=== PATIENT | female | born 1940 | race Caucasian/White ===

== ENCOUNTER 2018-12-10 07:29 | Outpatient (RCR) | payer OTHER, SELFPAY | END 2018-12-10 23:59 | disposition home or self-care (01) | LOC: INF 07:29 | PROVIDERS: PCP Family Medicine; Visit Provider Internal Medicine Hematology & Oncology | DX: R69 Illness, unspecified (principal) ==

== ENCOUNTER 2018-12-11 10:02 | Outpatient (CLI) | payer OTHER, SELFPAY ==
[2018-12-11 11:13] LABS: Abs Immature Grans 0.02 k/cumm (0.0-0.09); Absolute Basophil Count 0.03 k/cumm (0.0-0.2); Absolute Eosinophil Count 0.29 k/cumm (0.0-0.7); Absolute Lymphocyte Count 0.98 k/cumm (1.2-3.4); Absolute Monocyte Count 0.65 k/cumm (0.11-0.7); Absolute Neutrophil Count 6.07 k/cumm (1.2-6.7); Basophils % 0.4; Eosinophils % 3.6; HCT 29.4 % (36.0-46.0); HGB 9.3 g/dL (12.0-15.5); Immature Grans % 0.2; Lymphocytes % 12.2; Mean Corp. HGB Concentration 31.6 g/dL (32.0-36.0); Mean Corpuscular Hemoglobin 31.1 pg (27.0-33.0); Mean Corpuscular Volume 98.3 fL (80-95); Mean Platelet Volume 10.5 fL (8.0-11.0); Monocytes % 8.1; Neutrophils % 75.5; Platelet Count 350 x1000/uL (130-400); RBC 2.99 m/cumm (4.00-5.20); RBC Distribution Width 15.3 % (11.7-14.6); White Blood Cell Count 8.04 k/cumm (4.4-10.8)
[2018-12-11 11:17] LABS: ALT 17 U/L (14-59); AST 18 U/L (15-37); Albumin 3.5 g/dL (3.4-5.0); Alkaline Phosphatase 120 U/L (46-116); Anion Gap 9.4 mmol/L (3-11); BUN 16 mg/dL (7-18); Bilirubin, Total 0.3 mg/dL (0.2-1.0); CO2 27.6 mmol/L (21.0-32.0); Calcium 8.8 mg/dL (8.5-10.1); Chloride 101 mmol/L (98-107); Estimated GFR 33.76 (mL/min/1.73m2); Glucose 115 mg/dL (70-100); Magnesium 1.9 mg/dL (1.8-2.4); Potassium 3.5 mmol/L (3.5-5.1); Sodium 138 mmol/L (136-145); Total Protein 7.4 g/dL (6.4-8.2)
[2018-12-11 11:31] LABS: Diff Comment RBC Morph Reviewed; RBC Morphology Normal
== END 2018-12-11 10:22 ==
PROVIDERS: PCP Family Medicine; Visit Provider Internal Medicine Hematology & Oncology
DX: C09.9 Malignant neoplasm of tonsil, unspecified (principal)
CPT/HCPCS: 36415; 80053; 83735; 85025

== ENCOUNTER 2018-12-28 10:32 | Outpatient (CLI) | payer OTHER, SELFPAY ==
--- NOTE | 2018-12-28 11:21 | DI.RAD_ITS ---
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 TECHNIQUE: 2D and realtime digital imaging was performed. CONTRAST MATERIAL: Omnipaque 350 COMPARISON: No exams were available for comparison FINDINGS: The patient's port was accessed. There was no resistance during the injection. No contrast is seen leaking around the port or along the course of the tube. Contrast is seen to flow into the right at rium. The tip of the catheter is in the right atrium. Fluoro time: 21 sec IMPRESSION: Patent port. No evidence leak.
[2018-12-28] MEDS: Omnipaque 350 MG/ML 50 ML BTL IJ (11:23)
== END 2018-12-28 10:52 ==
PROVIDERS: PCP Family Medicine
DX: C09.9 Malignant neoplasm of tonsil, unspecified (principal); Z45.2 Encounter for adjustment and management of vascular access device
CPT/HCPCS: 76000; Q9967

== ENCOUNTER 2018-12-30 16:43 | Outpatient (REF) | payer OTHER, SELFPAY ==
[2018-12-30 21:51] LABS: Bilirubin Negative (Negative); Blood Small (Negative); Clarity Cloudy (Clear); Glucose Negative (Negative); Ketones Negative (Negative); Leukocyte Esterase Large (Negative); Nitrite Positive (Negative); Specific Gravity 1.015 (1.005-1.025); Urobilinogen 0.2 EU/dL (Up TO 0.2)
[2018-12-30 22:01] LABS: Bacteria Many HPF (Negative); Crystals Negative HPF (Negative); Epithelial Cells Rare HPF (Negative); Other Cells Negative (Negative); WBC >50 HPF (0-5)
[2018-12-30 22:02] LABS: C & S Indicated? Yes; Casts Negative LPF (Negative); Mucus Negative (Negative)
== END 2018-12-30 17:03 ==
LOC: LBN 16:43
PROVIDERS: PCP Family Medicine; Visit Provider Preventive Medicine Undersea and Hyperbaric Medicine
DX: R30.0 Dysuria (principal)
CPT/HCPCS: 87077; 81003; 81015; 87086; 87186

== ENCOUNTER 2019-01-04 02:51 | Outpatient (RCR) | payer OTHER, SELFPAY ==
[2018-12-18] VITALS (13 sets, daily range): BP systolic 120–146; BP diastolic 53–84; PULSE 52–82; RESP 17–19; TEMP 36.3–37.2; O2SAT 98–100
[2018-12-18] MEDS: Normal Saline Flush 10 ML SYR IVP ×2 (08:26→13:28)
[2018-12-18] MEDS: Heparin 500 UNITS/5 ML SYRINGE IV ×2 (08:26→15:34)
[2018-12-18 08:30] LABS: Abs Immature Grans 0.02 k/cumm (0.0-0.09); Absolute Basophil Count 0.02 k/cumm (0.0-0.2); Absolute Eosinophil Count 0.21 k/cumm (0.0-0.7); Absolute Lymphocyte Count 0.59 k/cumm (1.2-3.4); Absolute Monocyte Count 0.37 k/cumm (0.11-0.7); Absolute Neutrophil Count 5.61 k/cumm (1.2-6.7); Basophils % 0.3; Eosinophils % 3.1; HCT 21.7 % (36.0-46.0); Immature Grans % 0.3; Lymphocytes % 8.7; Mean Corp. HGB Concentration 31.3 g/dL (32.0-36.0); Mean Corpuscular Hemoglobin 31.6 pg (27.0-33.0); Mean Corpuscular Volume 100.9 fL (80-95); Mean Platelet Volume 10.1 fL (8.0-11.0); Monocytes % 5.4; Neutrophils % 82.2; Platelet Count 278 x1000/uL (130-400); RBC 2.15 m/cumm (4.00-5.20); RBC Distribution Width 16.7 % (11.7-14.6); White Blood Cell Count 6.82 k/cumm (4.4-10.8)
[2018-12-18 08:47] LABS: HGB 6.8 g/dL (12.0-15.5)
[2018-12-18 08:48] LABS: Anisocytosis 1+; Basophilic Stippling Present; Diff Comment RBC Morph Reviewed; Macrocytosis 1+; Polychromasia Present
[2018-12-18 08:50] LABS: ALT 17 U/L (14-59); AST 17 U/L (15-37); Albumin 3.2 g/dL (3.4-5.0); Alkaline Phosphatase 94 U/L (46-116); Anion Gap 8.5 mmol/L (3-11); BUN 24 mg/dL (7-18); Bilirubin, Total 0.3 mg/dL (0.2-1.0); CO2 26.5 mmol/L (21.0-32.0); CREATININE 1.28 mg/dL (0.55-1.02); Calcium 8.3 mg/dL (8.5-10.1); Chloride 102 mmol/L (98-107); Estimated GFR 40.54 (mL/min/1.73m2); Glucose 100 mg/dL (70-100); Magnesium 1.9 mg/dL (1.8-2.4); Potassium 3.3 mmol/L (3.5-5.1); Sodium 137 mmol/L (136-145); Total Protein 6.5 g/dL (6.4-8.2)
[2018-12-18] MEDS: Acetaminophen 325 MG TAB 650 MG PO (09:54)
[2018-12-18] MEDS: Furosemide 40 MG/4 ML VIAL 10 MG IVP (13:28)
[2018-12-21 08:25] VITALS: BP 133/63; PULSE 61; RESP 19; TEMP 37.1; O2SAT 100
[2018-12-21 08:31] LABS: Abs Immature Grans 0.06 k/cumm (0.0-0.09); Absolute Basophil Count 0.01 k/cumm (0.0-0.2); Absolute Eosinophil Count 0.03 k/cumm (0.0-0.7); Absolute Lymphocyte Count 0.32 k/cumm (1.2-3.4); Absolute Monocyte Count 0.66 k/cumm (0.11-0.7); Basophils % 0.1; Eosinophils % 0.4; HCT 31.5 % (36.0-46.0); HGB 10.6 g/dL (12.0-15.5); Immature Grans % 0.7; Lymphocytes % 3.9; Mean Corp. HGB Concentration 33.7 g/dL (32.0-36.0); Mean Corpuscular Hemoglobin 31.5 pg (27.0-33.0); Mean Corpuscular Volume 93.8 fL (80-95); Mean Platelet Volume 10.7 fL (8.0-11.0); Neutrophils % 86.9; Platelet Count 290 x1000/uL (130-400); RBC 3.36 m/cumm (4.00-5.20); RBC Distribution Width 15.9 % (11.7-14.6); White Blood Cell Count 8.28 k/cumm (4.4-10.8)
[2018-12-21] MEDS: Normal Saline Flush 10 ML SYR IVP (08:32)
[2018-12-21 08:42] LABS: ALT 12 U/L (14-59); AST 10 U/L (15-37); Albumin 2.9 g/dL (3.4-5.0); Alkaline Phosphatase 94 U/L (46-116); Anion Gap 11.6 mmol/L (3-11); BUN 20 mg/dL (7-18); Bilirubin, Total 1.1 mg/dL (0.2-1.0); CO2 25.4 mmol/L (21.0-32.0); CREATININE 1.68 mg/dL (0.55-1.02); Calcium 8.2 mg/dL (8.5-10.1); Chloride 95 mmol/L (98-107); Estimated GFR 29.62 (mL/min/1.73m2); Glucose 139 mg/dL (70-100); Magnesium 1.7 mg/dL (1.8-2.4); Sodium 132 mmol/L (136-145); Total Protein 6.8 g/dL (6.4-8.2)
[2018-12-21 08:48] LABS: Potassium 2.6 mmol/L (3.5-5.1)
[2018-12-28] MEDS: Normal Saline Flush 10 ML SYR IVP (08:48)
[2018-12-28 08:55] LABS: Abs Immature Grans 0.03 k/cumm (0.0-0.09); Absolute Basophil Count 0.01 k/cumm (0.0-0.2); Absolute Eosinophil Count 0.14 k/cumm (0.0-0.7); Absolute Lymphocyte Count 0.44 k/cumm (1.2-3.4); Absolute Neutrophil Count 3.17 k/cumm (1.2-6.7); Basophils % 0.2; Eosinophils % 3.3; HGB 9.4 g/dL (12.0-15.5); Immature Grans % 0.7; Lymphocytes % 10.3; Mean Corp. HGB Concentration 32.4 g/dL (32.0-36.0); Mean Corpuscular Hemoglobin 31.4 pg (27.0-33.0); Mean Platelet Volume 9.7 fL (8.0-11.0); Monocytes % 11.7; Neutrophils % 73.8; Platelet Count 426 x1000/uL (130-400); RBC 2.99 m/cumm (4.00-5.20); RBC Distribution Width 15.6 % (11.7-14.6); White Blood Cell Count 4.29 k/cumm (4.4-10.8)
[2018-12-28 09:04] LABS: ALT 14 U/L (14-59); AST 10 U/L (15-37); Albumin 2.8 g/dL (3.4-5.0); Alkaline Phosphatase 87 U/L (46-116); BUN 14 mg/dL (7-18); Bilirubin, Total 0.3 mg/dL (0.2-1.0); CREATININE 1.31 mg/dL (0.55-1.02); Calcium 8.4 mg/dL (8.5-10.1); Chloride 100 mmol/L (98-107); Estimated GFR 39.47 (mL/min/1.73m2); Glucose 120 mg/dL (70-100); Potassium 3.3 mmol/L (3.5-5.1); Sodium 135 mmol/L (136-145); Total Protein 6.4 g/dL (6.4-8.2)
[2019-01-01] MEDS: Heparin 500 UNITS/5 ML SYRINGE IV (08:40)
[2019-01-01] MEDS: Normal Saline Flush 10 ML SYR IVP (08:40)
[2019-01-01 09:07] LABS: Abs Immature Grans 0.04 k/cumm (0.0-0.09); Absolute Basophil Count 0.01 k/cumm (0.0-0.2); Absolute Eosinophil Count 0.09 k/cumm (0.0-0.7); Absolute Lymphocyte Count 0.19 k/cumm (1.2-3.4); Absolute Monocyte Count 0.39 k/cumm (0.11-0.7); Absolute Neutrophil Count 2.49 k/cumm (1.2-6.7); Basophils % 0.3; Eosinophils % 2.8; HCT 27.2 % (36.0-46.0); HGB 8.6 g/dL (12.0-15.5); Immature Grans % 1.2; Lymphocytes % 5.9; Mean Corp. HGB Concentration 31.6 g/dL (32.0-36.0); Mean Corpuscular Hemoglobin 30.7 pg (27.0-33.0); Mean Corpuscular Volume 97.1 fL (80-95); Mean Platelet Volume 9.3 fL (8.0-11.0); Monocytes % 12.1; Neutrophils % 77.7; RBC Distribution Width 15.4 % (11.7-14.6); White Blood Cell Count 3.21 k/cumm (4.4-10.8)
[2019-01-01 09:22] LABS: ALT 15 U/L (14-59); AST 11 U/L (15-37); Albumin 2.7 g/dL (3.4-5.0); Alkaline Phosphatase 77 U/L (46-116); Anion Gap 10.3 mmol/L (3-11); BUN 12 mg/dL (7-18); Bilirubin, Total 0.3 mg/dL (0.2-1.0); CO2 23.7 mmol/L (21.0-32.0); CREATININE 1.21 mg/dL (0.55-1.02); Calcium 8.1 mg/dL (8.5-10.1); Chloride 100 mmol/L (98-107); Estimated GFR 43.26 (mL/min/1.73m2); Glucose 131 mg/dL (74-106); Sodium 134 mmol/L (136-145); Total Protein 6.1 g/dL (6.4-8.2)
[2019-01-01 09:36] LABS: Anisocytosis 1+; Diff Comment RBC Morph Reviewed; Hypochromasia 1+; Platelet Count 419 x1000/uL (130-400); Polychromasia Present
[2019-01-04] MEDS: Normal Saline Flush 10 ML SYR IVP (08:55)
[2019-01-04 09:24] LABS: Abs Immature Grans 0.05 k/cumm (0.0-0.09); Absolute Basophil Count 0.03 k/cumm (0.0-0.2); Absolute Eosinophil Count 0.07 k/cumm (0.0-0.7); Absolute Monocyte Count 0.58 k/cumm (0.11-0.7); Absolute Neutrophil Count 6.39 k/cumm (1.2-6.7); Basophils % 0.4; Eosinophils % 0.9; HCT 27.9 % (36.0-46.0); Immature Grans % 0.7; Lymphocytes % 5.3; Mean Corp. HGB Concentration 32.3 g/dL (32.0-36.0); Mean Corpuscular Hemoglobin 31.3 pg (27.0-33.0); Mean Corpuscular Volume 96.9 fL (80-95); Mean Platelet Volume 9.3 fL (8.0-11.0); Monocytes % 7.7; Platelet Count 473 x1000/uL (130-400); RBC 2.88 m/cumm (4.00-5.20); RBC Distribution Width 15.6 % (11.7-14.6); White Blood Cell Count 7.52 k/cumm (4.4-10.8)
[2019-01-04 09:36] VITALS: BP 133/63; PULSE 61; RESP 19; TEMP 37.1; O2SAT 100
[2019-01-04 10:49] LABS: ALT 13 U/L (14-59); AST 14 U/L (15-37); Albumin 2.9 g/dL (3.4-5.0); Alkaline Phosphatase 81 U/L (46-116); Anion Gap 11.3 mmol/L (3-11); BUN 10 mg/dL (7-18); Bilirubin, Total 0.2 mg/dL (0.2-1.0); CO2 23.7 mmol/L (21.0-32.0); CREATININE 1.37 mg/dL (0.55-1.02); Calcium 8.5 mg/dL (8.5-10.1); Chloride 100 mmol/L (98-107); Estimated GFR 37.49 (mL/min/1.73m2); Glucose 130 mg/dL (74-106); Potassium 4.1 mmol/L (3.5-5.1); Sodium 135 mmol/L (136-145); Total Protein 6.3 g/dL (6.4-8.2)
== END 2019-01-09 23:59 | disposition home or self-care (01) ==
LOC: INF 02:51
PROVIDERS: PCP Family Medicine; Visit Provider Internal Medicine Hematology & Oncology
DX: C09.9 Malignant neoplasm of tonsil, unspecified (principal); D64.9 Anemia, unspecified; Z45.2 Encounter for adjustment and management of vascular access device
CPT/HCPCS: 36430; 36591; 80053; 86850; 86900; 86901; 86920; 83735; 85025; J1940; P9016

== ENCOUNTER 2019-01-29 03:49 | Outpatient (RCR) | payer OTHER, SELFPAY ==
[2019-01-11] MEDS: Normal Saline Flush 10 ML SYR IVP (08:55)
[2019-01-11 09:23] LABS: ALT 11 U/L (14-59); AST 12 U/L (15-37); Abs Immature Grans 0.03 k/cumm (0.0-0.09); Absolute Basophil Count 0.02 k/cumm (0.0-0.2); Absolute Eosinophil Count 0.02 k/cumm (0.0-0.7); Absolute Lymphocyte Count 0.28 k/cumm (1.2-3.4); Absolute Monocyte Count 0.54 k/cumm (0.11-0.7); Absolute Neutrophil Count 3.35 k/cumm (1.2-6.7); Albumin 2.7 g/dL (3.4-5.0); Alkaline Phosphatase 77 U/L (46-116); Anion Gap 11.1 mmol/L (3-11); BUN 13 mg/dL (7-18); Basophils % 0.5; Bilirubin, Total 0.3 mg/dL (0.2-1.0); CO2 22.9 mmol/L (21.0-32.0); CREATININE 1.25 mg/dL (0.55-1.02); Calcium 8.1 mg/dL (8.5-10.1); Chloride 100 mmol/L (98-107); Eosinophils % 0.5; Estimated GFR 41.67 (mL/min/1.73m2); Glucose 120 mg/dL (74-106); HCT 24.3 % (36.0-46.0); HGB 7.8 g/dL (12.0-15.5); Immature Grans % 0.7; Lymphocytes % 6.6; Mean Corp. HGB Concentration 32.1 g/dL (32.0-36.0); Mean Corpuscular Hemoglobin 31.5 pg (27.0-33.0); Mean Platelet Volume 9.7 fL (8.0-11.0); Monocytes % 12.7; Platelet Count 453 x1000/uL (130-400); Potassium 3.9 mmol/L (3.5-5.1); RBC 2.48 m/cumm (4.00-5.20); RBC Distribution Width 15.7 % (11.7-14.6); Sodium 134 mmol/L (136-145); Total Protein 5.9 g/dL (6.4-8.2); White Blood Cell Count 4.24 k/cumm (4.4-10.8)
[2019-01-11 09:46] LABS: Diff Comment RBC Morph Reviewed
[2019-01-11 09:47] LABS: Basophilic Stippling Present
[2019-01-11 09:48] LABS: Anisocytosis 1+; Polychromasia Present
[2019-01-12] VITALS (9 sets, daily range): BP systolic 121–187; BP diastolic 63–84; PULSE 60–111; RESP 18–19; TEMP 36.3–36.9; O2SAT 92–100
[2019-01-12] MEDS: Acetaminophen Solution 650 MG/20.3 ML CUP (10:12)
[2019-01-12] MEDS: Normal Saline Flush 10 ML SYR IVP (10:15)
[2019-01-12] MEDS: Furosemide 40 MG/4 ML VIAL 10 MG IVP (12:22)
[2019-01-12] MEDS: Heparin 500 UNITS/5 ML SYRINGE IV (15:00)
[2019-01-15] MEDS: Heparin 500 UNITS/5 ML SYRINGE IV (09:27)
[2019-01-15] MEDS: Normal Saline Flush 10 ML SYR IVP (09:27)
[2019-01-15 09:40] LABS: Abs Immature Grans 0.06 k/cumm (0.0-0.09); Absolute Basophil Count 0.02 k/cumm (0.0-0.2); Absolute Eosinophil Count 0.04 k/cumm (0.0-0.7); Absolute Lymphocyte Count 0.17 k/cumm (1.2-3.4); Absolute Neutrophil Count 2.55 k/cumm (1.2-6.7); Basophils % 0.6; Eosinophils % 1.2; HCT 37.8 % (36.0-46.0); HGB 12.5 g/dL (12.0-15.5); Immature Grans % 1.9; Lymphocytes % 5.2; Mean Corp. HGB Concentration 33.1 g/dL (32.0-36.0); Mean Corpuscular Hemoglobin 30.6 pg (27.0-33.0); Mean Corpuscular Volume 92.4 fL (80-95); Mean Platelet Volume 9.3 fL (8.0-11.0); Monocytes % 12.3; Neutrophils % 78.8; Platelet Count 423 x1000/uL (130-400); RBC 4.09 m/cumm (4.00-5.20); RBC Distribution Width 16.1 % (11.7-14.6); White Blood Cell Count 3.24 k/cumm (4.4-10.8)
[2019-01-15 10:55] LABS: ALT 12 U/L (14-59); AST 9 U/L (15-37); Albumin 2.8 g/dL (3.4-5.0); Alkaline Phosphatase 75 U/L (46-116); Anion Gap 9.4 mmol/L (3-11); BUN 12 mg/dL (7-18); Bilirubin, Total 0.6 mg/dL (0.2-1.0); CO2 28.6 mmol/L (21.0-32.0); CREATININE 1.22 mg/dL (0.55-1.02); Calcium 8.4 mg/dL (8.5-10.1); Chloride 97 mmol/L (98-107); Estimated GFR 42.85 (mL/min/1.73m2); Glucose 151 mg/dL (74-106); Potassium 3.7 mmol/L (3.5-5.1); Sodium 135 mmol/L (136-145); Total Protein 5.8 g/dL (6.4-8.2)
[2019-01-22] MEDS: Heparin 500 UNITS/5 ML SYRINGE IV (08:52)
[2019-01-22] MEDS: Normal Saline Flush 10 ML SYR IVP (08:52)
[2019-01-22 09:01] LABS: Abs Immature Grans 0.12 k/cumm (0.0-0.09); Absolute Basophil Count 0.07 k/cumm (0.0-0.2); Absolute Eosinophil Count 0.02 k/cumm (0.0-0.7); Absolute Monocyte Count 0.25 k/cumm (0.11-0.7); Absolute Neutrophil Count 2.34 k/cumm (1.2-6.7); Basophils % 2.4; Eosinophils % 0.7; HCT 35.3 % (36.0-46.0); HGB 11.9 g/dL (12.0-15.5); Immature Grans % 4.1; Lymphocytes % 3.4; Mean Corp. HGB Concentration 33.7 g/dL (32.0-36.0); Mean Corpuscular Hemoglobin 30.7 pg (27.0-33.0); Mean Corpuscular Volume 91.2 fL (80-95); Monocytes % 8.6; Neutrophils % 80.8; Platelet Count 320 x1000/uL (130-400); RBC 3.87 m/cumm (4.00-5.20); RBC Distribution Width 15.1 % (11.7-14.6)
[2019-01-22 09:12] LABS: ALT 9 U/L (14-59); AST 11 U/L (15-37); Albumin 2.7 g/dL (3.4-5.0); Alkaline Phosphatase 65 U/L (46-116); Anion Gap 9.8 mmol/L (3-11); BUN 10 mg/dL (7-18); Bilirubin, Total 0.5 mg/dL (0.2-1.0); CO2 28.2 mmol/L (21.0-32.0); Calcium 8.4 mg/dL (8.5-10.1); Chloride 94 mmol/L (98-107); Glucose 120 mg/dL (74-106); Sodium 132 mmol/L (136-145); Total Protein 6.3 g/dL (6.4-8.2)
[2019-01-29] MEDS: Normal Saline Flush 10 ML SYR IVP (08:50)
[2019-01-29] MEDS: Heparin 500 UNITS/5 ML SYRINGE IV (08:50)
[2019-01-29 09:14] LABS: HCT 33.5 % (36.0-46.0); HGB 10.9 g/dL (12.0-15.5); Mean Corp. HGB Concentration 32.5 g/dL (32.0-36.0); Mean Corpuscular Hemoglobin 30.1 pg (27.0-33.0); Mean Corpuscular Volume 92.5 fL (80-95); Platelet Count 364 x1000/uL (130-400); RBC 3.62 m/cumm (4.00-5.20); RBC Distribution Width 15.6 % (11.7-14.6); White Blood Cell Count 2.68 k/cumm (4.4-10.8)
[2019-01-29 09:20] VITALS: BP 129/80; PULSE 102; RESP 19; TEMP 36.3; O2SAT 100
[2019-01-29 09:34] LABS: ALT 11 U/L (14-59); AST 10 U/L (15-37); Albumin 2.4 g/dL (3.4-5.0); Alkaline Phosphatase 65 U/L (46-116); Anion Gap 6.5 mmol/L (3-11); BUN 14 mg/dL (7-18); Bilirubin, Total 0.5 mg/dL (0.2-1.0); CO2 32.5 mmol/L (21.0-32.0); CREATININE 1.01 mg/dL (0.55-1.02); Calcium 8.2 mg/dL (8.5-10.1); Chloride 92 mmol/L (98-107); Estimated GFR 53.29 (mL/min/1.73m2); Glucose 226 mg/dL (74-106); Potassium 3.1 mmol/L (3.5-5.1); Sodium 131 mmol/L (136-145); Total Protein 5.8 g/dL (6.4-8.2)
[2019-01-29 09:44] LABS: Absolute Eosinophil Count 0.11 k/cumm (0.0-0.7); Absolute Lymphocyte Count 0.08 k/cumm (1.2-3.4); Absolute Monocyte Count 0.19 k/cumm (0.11-0.7); Diff Comment Manual Differential; RBC Morphology Normal
== END 2019-02-09 23:59 | disposition home or self-care (01) ==
LOC: INF 03:49
PROVIDERS: PCP Family Medicine; Visit Provider Internal Medicine Hematology & Oncology
DX: C09.9 Malignant neoplasm of tonsil, unspecified (principal); Z45.2 Encounter for adjustment and management of vascular access device
CPT/HCPCS: 36430; 36591; 80053; 86850; 86900; 86901; 86920; 96523; 85025; J1940; P9016